=== PATIENT | female | born 2000 | race Caucasian/White ===

== ENCOUNTER 2021-11-08 18:14 | Emergency (ER) | payer OTHER ==
[2021-11-08 18:38] VITALS: BP 116/79; PULSE 97; RESP 20; TEMP 98.6; BMI 32.3
[2021-11-08 20:27] LABS: EPI CELLS >36 /uL (0-25.1); HYALINE CASTS 1 /uL (0-3.1); URINE APPEARANCE CLOUDY; URINE BACTERIA 5006 /uL (0-1359); URINE BILIRUBIN NEGATIVE (NEGATIVE); URINE COLOR YELLOW; URINE GLUCOSE (UA) NEGATIVE (NEGATIVE); URINE KETONE NEGATIVE (NEGATIVE); URINE LEUK ESTERASE 3+ (NEGATIVE); URINE NITRITE NEGATIVE (NEGATIVE); URINE PROTEIN NEGATIVE (NEGATIVE); URINE RBC 8 /uL (0-23.9); URINE UROBILINOGEN 0.2 mg/dL (0.2-1.0); URINE WBC 216 /uL (0-25.8)
[2021-11-08 20:36] LABS: HCG,QUALITATIVE URINE Negative
== END 2021-11-08 22:05 | disposition home or self-care (01) ==
LOC: JER 18:14
DX: J06.9 Acute upper respiratory infection, unspecified (principal); N30.90 Cystitis, unspecified without hematuria
CPT/HCPCS: 81003; 84703; 87086; 99283-25